=== PATIENT | male | born 1990 | race Caucasian/White ===

== ENCOUNTER 2024-01-16 09:59 | Outpatient (CLI) | payer OTHER, SELFPAY ==
[2024-01-16 13:59] LABS: Liquefaction Semen Complete in 30 min. (<30 minutes); Semen Color Opaque (Grey-opaque); Semen Non-Progressive Motility 10 %; Semen Progressive Motility 60 % (>32); Semen Viscosity Not Increased (Not Increa.)
[2024-01-16 14:00] LABS: Semen Immotility 30 %; Semen Morphology Result to Follow
[2024-01-16 14:02] LABS: Semen Total Motility 70 (>40% (PM+NP))
== END 2024-01-16 10:00 | disposition home or self-care (01) ==
PROVIDERS: PCP Family Medicine; Visit Provider Family Medicine
DX: N46.9 Male infertility, unspecified (principal)
CPT/HCPCS: 82757; 88160; 89320